=== PATIENT | male | born 1950 | race Caucasian/White ===

== ENCOUNTER → 2020-05-17 08:04 | Outpatient (BNVA) | payer MEDICARE, BC, SELFPAY | PROVIDERS: PCP Internal Medicine; Visit Provider Student in an Organized Health Care Education/Training Program | DX: M1A.0711 Idiopathic chronic gout, right ankle and foot, with tophus (tophi) (principal); M19.041 Primary osteoarthritis, right hand; M19.042 Primary osteoarthritis, left hand; I16.0 Hypertensive urgency; Z79.899 Other long term (current) drug therapy | CPT/HCPCS: 99212 ==

== ENCOUNTER 2020-05-17 08:38 | Emergency (ER) | payer MEDICARE, BC, SELFPAY ==
[2020-05-17 09:18] VITALS: BP 187/103; PULSE 67; RESP 16; TEMP 36.7; O2SAT 96; BMI 27.3
--- NOTE | 2020-05-17 10:55 | ED.GENADULT ---
HPI - General Adult General Chief complaint: General Medical Stated complaint: HBP Time Seen by Provider: 05/17/20 10:35 Source: patient Mode of arrival: ambulatory Limitations: no limitations History of Present Illness HPI narrative: 70 yo male with past medical history of HTN, HLD, OA, asthma, gout, neuropathy, BPH, GERD here with complaints of high blood pressure. Patient tells me he takes bystolic and lisinopril daily for his blood pressure. He ran out of his lisinopril 4 days ago and has not called for a refill. He was seen by rheumatology today and during his intake was noted to have high blood pressure and was referred to the ED. The patient denies ANGEL, vision changes, nausea, vomiting, chest pain, paresthesias or any other symptoms. Patient tells me he feels well and would like to go home. Related Data Home Medications Medication Instructions Recorded Confirmed albuterol sulfate 90 mcg/actuation 2 puff INHALATION Q4-6H PRN 05/07/20 aerosol inhaler aspirin 81 mg tablet,delayed 81 mg PO DAILY 05/07/20 release fluticasone 250 mcg-salmeterol 50 1 inh INHALATION BID 05/07/20 mcg/dose blistr powdr for inhalation lansoprazole 30 mg delayed 30 mg PO DAILY 05/07/20 release,disintegrating tablet lisinopril 40 mg tablet 40 mg PO DAILY 05/07/20 pregabalin 50 mg capsule 50 mg PO BID 05/07/20 simvastatin 20 mg tablet 20 mg PO BEDTIME 05/07/20 tiotropium bromide 18 mcg capsule 1 cap INHALATION DAILY 05/07/20 with inhalation device Previous Rx's Medication Instructions Recorded nebivolol 2.5 mg tablet 2.5 mg PO DAILY #90 tab 02/07/20 gabapentin 300 mg capsule 300 mg PO TID 90 Days #270 cap 02/20/20 allopurinol 100 mg tablet 100 mg PO DAILY #90 tab 02/23/20 lisinopril 40 mg PO DAILY #30 tab 05/17/20 Allergies Allergy/AdvReac Type Severity Reaction Status Date / Time No Known Allergies Allergy Verified 05/17/20 08:14 [No Known Allergies*] Review of Systems Review of Systems: Yes all other systems are reviewed and are negative Constitutional: Constitutional: Reports no additional constitutional complaints, Denies body ache(s), Denies chills, Denies fever(s), Denies headache(s) and Denies weakness Eyes: Eyes: Reports no additional eye complaints and Denies change in vision ENT: Reports system reviewed and no additional complaints, except as documented, Denies dizziness, Denies headache(s), Denies nasal congestion, Denies nasal discharge and Denies neck pain Cardiovascular: Cardiovascular: Reports no additional cardiovascular complaints, Denies chest pain, Denies leg edema and Denies dyspnea Respiratory: Respiratory: Reports no additional respiratory complaints, Denies cough and Denies dyspnea Gastrointestinal: Gastrointestinal: Reports no additional gastrointestinal complaints, Denies abdominal pain, Denies diarrhea, Denies nausea and Denies vomiting Genitourinary: Genitourinary: Denies urinary incontinence Musculoskeletal: Musculoskeletal: Reports no additional musculoskeletal complaints, Denies back pain, Denies arthralgias, Denies joint swelling, Denies neck pain, Denies numbness and Denies tingling Integumentary/Breasts: Skin/Breast: Reports system reviewed and no additional complaints, except as docu and Denies rash Neurologic: Reports system reviewed and no additional complaints, except as documented, Denies Abnormal speech present, Denies dizziness, Denies headache(s), Denies numbness, Denies tingling and Denies weakness PMFSH Past Medical History Attestation statement: The following information was validated with the patient. Source: old records reviewed and nursing notes reviewed Medical History Asthma BPH (benign prostatic hyperplasia) Fatty liver GERD (gastroesophageal reflux disease) Gout Gout of right foot History of alcohol abuse History of esophageal stricture Hypercholesterolemia Hypertension Left renal stone Melanoma Mild cognitive impairment Osteoarthritis Peripheral neuropathy Primary osteoarthritis of hands, bilateral Surgical History History of hydrocelectomy History of tonsillectomy Family History Family History Father Suicide Mother Cancer Brother Poor high blood pressure control Sister Breast cancer Social History Social History Alcohol intake: current Alcohol intake frequency: 0-2 drinks per day Alcohol type: beer Smoking Status: Never smoker Use of substances other than those prescribed or required for medical reasons: No Advance Directives: No Advance Directives Information Provided: No Physical Exam Vital Signs: Vital Signs: Last Vital Signs Temp 98.1 F 05/17/20 09:18 Pulse 67 05/17/20 09:18 Resp 16 05/17/20 09:18 BP 187/103 H 05/17/20 09:18 Pulse Ox 96 05/17/20 09:18 Body Mass Index 27.3 Const: General: cooperative, healthy appearing, comfortable and no acute distress Orientation/consciousness: patient oriented x3 Limitations: no limitations HENMT: Head: Yes normal to inspection Ears: hearing grossly normal bilaterally General nose exam: Normal external nose present Face and sinus: Yes normal facial exam Mouth: Normal oral and palatal mucosa present Throat: Yes posterior oropharynx normal Eyes: General: appearance normal, both eyes and all related structures Pupils: Equal, round and reactive pupils present Neck: Neck: Yes normal visual inspection Chest: Chest palpation & inspection: normal inspection of the chest Resp: Effort & Inspection: normal respiratory effort Auscultation: clear to auscultation bilaterally Cardio: Rate: regular rate Rhythm: regular rhythm Peripheral pulses: Peripheral pulses 2+ throughout GI: Inspection: Yes normal to inspection Palpation (GI): Soft to palpation and nontender Auscultation: normal bowel sounds Back/Spine/Pelvis: Thoracic/Lumbar Spine: thoracic and lumbar spine normal to inspection Skin: General skin exam: no rashes or lesions noted Neuro: General: patient oriented x3, no focal motor deficits and normal sensation to monofilament Cranial nerves: Yes Equal, round and reactive pupils present Cognition (Neuro): normal cognition Speech: No Abnormal speech present Gait exam (Neuro): Normal gait present Motor exam (neuro): 5/5 motor strength present throughout Extrem: General: Yes normal to inspection Course Course Course Narrative: [age] yo male with past medical history of hypertension. Ran out of lisinopril 4 days. Sent from rheumatology office for asymptomatic HTN. Patient noted to be hypertensive here in ED with NO symptoms which is likely secondary to non medication compliance. Given dose of lisinopril here in ED, refill sent to pharmacy. Has blood pressure cuff at home and will closely monitor and then f/u with PCP. Reviewed worrisome signs.symptoms with patient and when to return to ED. Comfortable with discharge home. Medical Decision Making Medical Records Medical records reviewed: Yes I reviewed the patient's medical records. Discharge Plan Discharge Clinical Impression: Hypertension Qualifiers: Hypertension type: essential hypertension Qualified Code(s): I10 - Essential (primary) hypertension Patient Disposition: Home, Self-Care Instructions: Hypertension (ED) Additional Instructions: Start your lisinopril tomorrow Follow-up with dr Diaz Monitor your blood pressure over the next few days. Prescriptions: New lisinopril 40 mg tablet 40 mg PO DAILY Qty: 30 RF: 0 No Action nebivolol [Bystolic] 2.5 mg tablet 2.5 mg PO DAILY Qty: 90 RF: 1 gabapentin 300 mg capsule 300 mg PO TID 90 Days Qty: 270 RF: 0 allopurinol 100 mg tablet 100 mg PO DAILY Qty: 90 RF: 1 Spiriva with HandiHaler 18 mcg capsule, w/inhalation device 1 cap inhalation DAILY RF: 0 pregabalin [Lyrica] 50 mg capsule 50 mg PO BID RF: 0 aspirin [Adult Aspirin Regimen] 81 mg tablet,delayed release (DR/EC) 81 mg PO DAILY RF: 0 fluticasone propion-salmeterol [Advair Diskus] 250-50 mcg/dose blister with device 1 inh inhalation BID RF: 0 albuterol sulfate [ProAir HFA] 90 mcg/actuation HFA aerosol inhaler 2 puff inhalation Q4-6H PRNRF: 0 lisinopril 40 mg tablet 40 mg PO DAILY RF: 0 lansoprazole 30 mg tablet,disintegrat, delay rel 30 mg PO DAILY RF: 0 simvastatin 20 mg tablet 20 mg PO BEDTIME RF: 0 Referrals: Po,Manpreet Cam MD [Primary Care Provider] - 2 days Interventions: ED Discharge Assessment Last Done: 05/17/20 11:46 Discharge Date/Time: 05/17/20 11:30
== END 2020-05-17 11:30 | disposition home or self-care (01) ==
LOC: HO.ED 11:09
PROVIDERS: Emergency Provider Emergency Medicine; PCP Internal Medicine
DX: I10 Essential (primary) hypertension (principal); Z79.899 Other long term (current) drug therapy; Z79.82 Long term (current) use of aspirin
CPT/HCPCS: 99283

== ENCOUNTER 2020-06-18 08:52 | Outpatient (REF) | payer MEDICARE, BC, SELFPAY ==
[2020-06-18 11:09] LABS: MANUAL DIFF FLAG NO
[2020-06-18 11:39] LABS: Uric Acid 6.5 mg/dL (3.4-7.0)
[2020-06-18 11:43] LABS: Basophils Absolute Auto 0.1 X10*3/uL (0.0-0.2); Basophils Percent Auto 0.6 % (0-2); Eosinophils Absolute Auto 0.3 X10*3/uL (0.0-0.4); Eosinophils Percent Auto 3.4 % (0-4); Hematocrit 42.3 % (42-52); Hemoglobin 14.7 g/dl (14.0-18.0); Imm Gran Abs Auto 0.03 X10*3/uL (0.00-0.03); Imm Gran Pct Auto 0.3 % (0.0-0.4); Lymphocytes Absolute Auto 2.3 X10*3/uL (1.2-4.9); Lymphocytes Percent Auto 24.9 % (20-40); Mean Corpuscular HGB Conc 34.8 g/dl (31.0-36.0); Mean Corpuscular Hemoglobin 35.3 pg (27.0-33.0); Mean Corpuscular Volume 101.4 fL (80-98); Mean Platelet Volume 11.7 fL (9.4-12.4); Monocytes Absolute Auto 0.9 X10*3/uL (0.1-1.2); Monocytes Percent Auto 9.2 % (2-11); Neutrophils Absolute Auto 5.7 X10*3/uL (2.0-8.3); Neutrophils Percent Auto 61.6 % (45-73); Platelet Count 223 X10*3/uL (160-400); Red Blood Count 4.17 X10*6/uL (4.60-5.80); Red Cell Distribution Width 12.6 % (11.0-16.0); White Blood Count 9.3 X10*3/uL (4.8-10.8)
[2020-06-18 11:47] LABS: Estimated Average Glucose 111 mg/dL; Hemoglobin A1c % 5.5 %
[2020-06-18 12:03] LABS: Alanine Aminotransferase 41 U/L (0-40); Albumin Level 4.5 g/dL (3.5-5.0); Alkaline Phosphatase 73 U/L (39-117); Anion Gap 16 (12-20); Aspartate Amino Transferase 36 U/L (5-37); Bilirubin Total 0.5 mg/dL (0.0-1.0); Blood Urea Nitrogen 13 mg/dL (9-16); Calcium 8.9 mg/dL (8.4-10.2); Carbon Dioxide 24 mmol/L (22-29); Chloride 106 mmol/L (96-108); Cholesterol 183 mg/dL; Estimated Glomerular Filt Rate > 60; Glucose Fasting 102 mg/dL (60-99); HDL Cholesterol 62 mg/dL; LDL Cholesterol Calculated 101 mg/dl; Potassium 4.6 mmol/L (3.3-5.1); Sodium 141 mmol/L (135-145); Total Protein 7.3 g/dL (6.5-8.0); Triglycerides 102 mg/dL
[2020-06-18 12:19] LABS: Folate 5.6 ng/mL (> or = 4.0); Vitamin B12 222 pg/mL (200-900)
[2020-06-18 13:32] LABS: Erythrocyte Sedimentation Rate 7 MM/HR (0-15)
== END 2020-06-18 08:53 | disposition home or self-care (01) ==
LOC: HO.HMGCLDS 08:52
PROVIDERS: PCP Internal Medicine; Visit Provider Internal Medicine
DX: E78.00 Pure hypercholesterolemia, unspecified (principal); K21.9 Gastro-esophageal reflux disease without esophagitis; I10 Essential (primary) hypertension; J45.909 Unspecified asthma, uncomplicated; R73.01 Impaired fasting glucose; M19.90 Unspecified osteoarthritis, unspecified site; M10.9 Gout, unspecified
CPT/HCPCS: 36415; 80053; 80061; 82607; 82746; 83036; 84550; 85025; 85652